=== PATIENT | female | born 1960 | race Caucasian/White ===

== ENCOUNTER 2017-04-10 13:58 | Emergency (ER) | payer OTHER ==
--- NOTE | 2017-04-10 14:14 | Emergency Department Record ---
History of Present Illness - General Chief complaint: Dental Stated complaint: DENTAL PAIN Time Seen by Provider: 04/10/17 14:13 Source: Patient Mode of Arrival: Ambulatory Limitations: No limitations - History of Present Illness Initial comments: 56 yo female presents to ED with a CC of increased dental pain and welling to the left lower incisor that was removed 5 days ago. Patient reports increased pain and swelling for the past 2 days. Patient denies bleeding or drainage from the tooth. Patient reports a history of inflammatory arthritis that she takes medication for. MD complaint: Tooth pain Onset/Timin -: Days(s) Location: Tooth # 1 - post-extraction site, pain, swelling per patient Severity: Moderate Quality: Aching Consistency: Constant Improves with: None Worsens with: None Context-Epistaxis: Recent surgery/procedure Context- Dental: History of dental caries - Related Data Home Medications Medication Instructions Recorded Confirmed Last Taken Bupropion HCl [Wellbutrin Xl] 300 mg PO DAILY 04/10/17 04/10/17 1 Day Ago ~04/09/17 Diclofenac Sodium [Voltaren-Xr] 100 mg PO DAILY 04/10/17 04/10/17 1 Day Ago ~04/09/17 Lisinopril/Hydrochlorothiazide 1 each PO DAILY 04/10/17 04/10/17 1 Day Ago [Lisinopril-Hctz 10-12.5 mg Tab] ~04/09/17 Sulfasalazine [Azulfidine] 1,500 mg PO BID 04/10/17 04/10/17 1 Day Ago ~04/09/17 Zolpidem Tartrate [Ambien] 10 mg PO QHS 04/10/17 04/10/17 1 Day Ago ~04/09/17 Previous Rx's Medication Instructions Recorded Penicillin V Potassium 500 mg PO Q6H #28 tab 04/10/17 Allergies Allergy/AdvReac Type Severity Reaction Status Date / Time morphine Allergy HYPERSENSIT Verified 04/10/17 14:16 IVITY Review of Systems Constitutional: Denies: Chills, Fever, Malaise, Night sweats Eyes: Denies: Eye discharge, Eye pain ENT: Reports: Dental pain. Denies: Congestion, Ear pain, Epistaxis Respiratory: Denies: Cough, Dyspnea Cardiovascular: Denies: Chest pain, Dyspnea on exertion Endocrine: Denies: Fatigue, Heat or cold intolerance Gastrointestinal: Denies: Abdominal pain, Nausea, Vomiting Genitourinary: Denies: Incontinence, Retention Musculoskeletal: Denies: Arthralgia, Back pain, Gout, Joint swelling Skin: Denies: Bruising, Change in color Neurological: Denies: Abnormal gait, Confusion, Headache, Seizure Psychiatric: Denies: Anxiety Hematological/Lymphatic: Denies: Anemia, Blood Clots Physical Exam - General General Appearance: Alert, Oriented x3, Cooperative, No acute distress Limitations: No limitations - Head Head exam: Atraumatic, Normocephalic, Normal inspection Head exam detail: negative: Abrasion, Contusion, Mayberry's sign, General tenderness, Hematoma, Laceration - Eye Eye exam: Normal appearance. negative: Conjunctival injection, Periorbital swelling, Periorbital tenderness, Scleral icterus - ENT Ear exam: negative: Auricular hematoma, Auricular trauma Nasal Exam: negative: Active bleeding, Discharge, Dried blood Mouth exam: negative: Drooling, Laceration, Muffled voice, Tongue elevation Teeth exam: Dental caries, Dental tenderness # Throat exam: negative: R peritonsillar mass, L peritonsillar mass - Neck Neck exam: Normal inspection. negative: Meningismus, Tenderness - Respiratory Respiratory exam: Normal lung sounds bilaterally. negative: Rales, Respiratory distress, Rhonchi, Stridor - Cardiovascular Cardiovascular Exam: Regular rate, Normal rhythm, Normal heart sounds - GI/Abdominal GI/Abdominal exam: Soft. negative: Rebound, Rigid, Tenderness - Rectal Rectal exam: Deferred - exam: Deferred - Extremities Extremities exam: Normal inspection. negative: Calf tenderness, Pedal edema, Tenderness - Back Back exam: Denies: CVA tenderness (R), CVA tenderness (L) - Neurological Neurological exam: Alert, Normal gait, Oriented X3 - Psychiatric Psychiatric exam: Normal affect, Normal mood - Skin Skin exam: Normal color. negative: Abrasion Type of lesion: negative: abrasion Course - Reevaluation(s) Reevaluation #1: 04/10/17 14:23 Symptoms appear consistent with post-extraction infection, will initiate Pencillin VK as the patient reports that has improved her dental infection symptoms previously. Patient appears stable for discharge at this time. Disposition Disposition: Discharge Clinical Impression: Post op infection Qualifiers: Encounter type: initial encounter Qualified Code(s): T81.4XXA - Infection following a procedure, initial encounter Disposition: Home, Self-Care Condition: (2) Stable Instructions: Dental Abscess (ED) Additional Instructions: Return to ED if your symptoms worsen or if you have any concerns. Pen VK as directed. Follow-up with Dr. Chicas (Dentist) in 3-5 days as directed. Prescriptions: Penicillin V Potassium 500 mg PO Q6H #28 tab Forms: Patient Portal Access Time of Disposition: 14:14
== END 2017-04-10 14:25 | disposition home or self-care (01) ==
LOC: ER 13:58
DX: T81.4XXA Infection following a procedure, initial encounter (principal); K04.7 Periapical abscess without sinus
CPT/HCPCS: 99282